=== PATIENT | female | born 2000 | race Caucasian/White ===

== ENCOUNTER 2021-07-27 02:20 | Emergency (ER) | payer OTHER ==
[2021-07-27 03:13] LABS: HEMOGLOBIN 13.8 gm/dl (12.3-15.3); RED BLOOD COUNT 4.67 M/UL (4.00-5.10); WHITE BLOOD COUNT 9.5 K/UL (4.5-11.0)
[2021-07-27 03:24] LABS: BUN/CREATININE RATIO 16 (0-10)
[2021-07-27] MEDS ORDERED: OMNICEF 300 MG300 MG PO (04:46)
[2021-07-27] MEDS ORDERED: PHENERGAN 12.12.5 M1 PO (04:46)
== END 2021-07-27 05:10 | disposition home or self-care (01) ==
LOC: ER1 02:20
PROVIDERS: Physician Assistant Medical
DX: R11.2 Nausea with vomiting, unspecified (principal); Z20.822 Contact with and (suspected) exposure to COVID-19
CPT/HCPCS: 80053; 81001; 83605; 83690; 84703; 85025; 96374; 96375; 99284; J0696; J2405; U0002